=== PATIENT | male | born 1930 | race Two or more races ===

== ENCOUNTER 2017-06-30 10:26 | Outpatient (CLI) | payer OTHER | END 2017-06-30 10:27 | disposition home or self-care (01) | LOC: LAB 10:26 | DX: J45.40 Moderate persistent asthma, uncomplicated (principal); J30.1 Allergic rhinitis due to pollen; R06.02 Shortness of breath ==

== ENCOUNTER 2017-06-30 11:09 | Outpatient (CLI) | payer OTHER | END 2017-06-30 16:37 | disposition home or self-care (01) | LOC: SONOGRAMA 11:09 | DX: R10.9 Unspecified abdominal pain (principal) ==

== ENCOUNTER 2018-04-22 09:29 | Outpatient (CLI) | payer OTHER | END 2018-04-22 09:31 | disposition home or self-care (01) | LOC: SONOGRAMA 09:29 | DX: C67.9 Malignant neoplasm of bladder, unspecified (principal) ==